=== PATIENT | female | born 1965 | race American Indian/Alaskan Native ===

== ENCOUNTER 2016-11-26 17:15 | Emergency (ER) | payer MEDICAID ==
[2016-11-26 17:38] VITALS: BP 144/97
== END 2016-11-26 20:40 | disposition left against medical advice (07) ==
LOC: ED 17:15
DX: M25.571 Pain in right ankle and joints of right foot (principal); I10 Essential (primary) hypertension; M32.9 Systemic lupus erythematosus, unspecified; Z88.0 Allergy status to penicillin; Z53.21 Procedure and treatment not carried out due to patient leaving prior to being seen by health care provider